=== PATIENT | female | born 1945 | race Two or more races ===

== ENCOUNTER 2017-10-17 20:02 | Emergency (ER) | payer BC, OTHER ==
[2017-10-17] MEDS ORDERED: DIPHTH,PERTUSS(ACELL),TET 0.5 ML DISP.SYRIN IM ONE (20:12)
--- NOTE | 2017-10-17 20:13 | PDOC ---
Rapid Medical Evaluation Time Seen by Provider: 10/17/17 20:04 Medical Evaluation: Allergies Allergy/AdvReac Type Severity Reaction Status Date / Time No Known Allergies Allergy Verified 10/21/12 18:17 10/17/17 20:09 I have performed a brief in-person evaluation of this patient. The patient presents with a chief complaint of: laceration to L index finger while cutting veggies, PMH of "heart arrhythmia", unknown last tdap, no daily meds I have ordered the following: tdap The patient will proceed to the ED for further evaluation. Discharge Disposition - Diagnosis Laceration - Referrals - Patient Instructions - Post Discharge Activity
[2017-10-17 20:15] VITALS: BP 148/103; PULSE 85; TEMP 98; BMI 22.4
--- NOTE | 2017-10-17 22:56 | PDOC ---
History of Present Illness - History of Present Illness Initial Comments: 10/17/17 22:56 Patient is a 71 year old female, presents to the emergency department with complaints of a laceration to her left pointer finger sustained just prior to arrival. Patient was cutting vegetables with a knife when she sliced her finger. She denies numbness or tingling in the left pointer finger. 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 Since then she has had some numbness in her left thumb. Patient is right hand dominant. Tetanus updated here in the ER. <Daniel Marshall - Last Filed: 10/17/17 22:56> <Maggie Woodall - Last Filed: 10/17/17 23:03> - General Chief Complaint: Laceration Stated Complaint: LACERATION Time Seen by Provider: 10/17/17 20:04 Past History <Daniel Marshall - Last Filed: 10/17/17 22:56> - Past Medical History Cardiac Disorders: Yes (MVP) COPD: No - Immunization History Immunization Up to Date: Yes - Suicide/Smoking/Psychosocial Hx Smoking Status: No Smoking History: Never smoked Number of Cigarettes Smoked Daily: 0 Hx Alcohol Use: No Drug/Substance Use Hx: No Substance Use Type: None <Maggie Woodall - Last Filed: 10/17/17 23:03> - Past Medical History Allergies/Adverse Reactions: Allergies Allergy/AdvReac Type Severity Reaction Status Date / Time No Allergy Information Allergy Verified 10/17/17 20:10 Available Home Medications: Ambulatory Orders No Home Medications 0 dose .ROUTE UTDICT 10/21/12 Review of Systems - Review of Systems Able to Perform ROS?: Yes Comments:: 10/17/17 22:56 CONSTITUTIONAL: Absent: fever, no chills, no fatigue MUSKULOSKELETAL: Absent: back pain, no arthralgia, no myalgia SKIN: Present: Laceration to left pointer finger. Puncture to left thumb Absent: rash NEURO: Absent: headache Is the patient limited Togolese proficient: No <Daniel Marshall - Last Filed: 10/17/17 22:56> *Physical Exam - Vital Signs Last Vital Signs Temp Pulse Resp BP Pulse Ox 98.0 F 85 18 148/103 98 10/17/17 20:11 10/17/17 20:11 10/17/17 20:11 10/17/17 20:11 10/17/17 20:11 - Physical Exam Comments: 10/17/17 22:56 GENERAL: Well-appearing, well-nourished. No apparent distress. EXTREMITIES: superficial laceration to the left pointer finger, flexion and extension intact. No tendons exposed. Small healed puncture proximal to the the thenar eminence Normal ROM in all four extremities. No gross deformities. SKIN: Warm, dry. No rash NEUROLOGICAL: No focal neurological deficits. <Daniel Marshall - Last Filed: 10/17/17 22:56> - Vital Signs Last Vital Signs Temp Pulse Resp BP Pulse Ox 98.0 F 85 18 148/103 98 10/17/17 20:11 10/17/17 20:11 10/17/17 20:11 10/17/17 20:11 10/17/17 20:11 <Maggie Woodall - Last Filed: 10/17/17 23:03> Procedures - Laceration/Wound Repair Left Distal 3rd digit Wound Length: to 2.5 cm Wound Explored: clean, no foreign body present Wound's Depth, Shape: superficial, linear (with piece of skin avulsed off. Wound approximated to the best tissue would allow) Irrigated w/ Saline: Yes Betadine Prep: Yes Anesthesia: 1% Lidocaine Amount of Anesthetic (ccs): 1 Wound Repaired With: Sutures Suture Size/Type: 5:0 (prolene) Number of Sutures: 4 (simple interrupted) Layer Closure: No Sterile Dressing Applied: Yes <Maggie Woodall - Last Filed: 10/17/17 23:03> ED Treatment Course - Medications Given in the ED: ED Medications Discontinued Medications Generic Name Dose Route Start Last Admin Trade Name Freq PRN Reason Stop Dose Admin Diphtheria/Tetanus/Acell Pertussis 0.5 ml 10/17/17 20:12 10/17/17 22:00 Boostrix - IM 10/17/17 20:13 0.5 ml .ONCE ONE Administration <Daniel Marshall - Last Filed: 10/17/17 22:56> - Medications Given in the ED: ED Medications Discontinued Medications Generic Name Dose Route Start Last Admin Trade Name Freq PRN Reason Stop Dose Admin Diphtheria/Tetanus/Acell Pertussis 0.5 ml 10/17/17 20:12 10/17/17 22:00 Boostrix - IM 10/17/17 20:13 0.5 ml .ONCE ONE Administration <Maggie Woodall - Last Filed: 10/17/17 23:03> *DC/Admit/Observation/Transfer - Attestations Scribe Attestion: 10/17/17 22:56 Documentation prepared by Daniel Marshall, acting as medical director/head team physician for DRAKE Alvarez <Daniel Marshall - Last Filed: 10/17/17 22:56> - Discharge Dispostion Admit: No <Maggie Woodall - Last Filed: 10/17/17 23:03> Diagnosis at time of Disposition: Laceration - Discharge Dispostion Disposition: HOME Condition at time of disposition: Good - Referrals Referrals: Jhoan Garcia MD [Staff Physician] - - Patient Instructions Printed Discharge Instructions: DI for Laceration Repair Additional Instructions: You had your laceration repaired today. You had 4 stitches placed. Keep the area clean and dry. Wear the finger splint given to you to help the cut heal better. You may gently wash your hands with soap and water and pat dry. You may take Tylenol or Motrin as needed for pain. Wear a glove at work and while showering to protect the finger from getting wet. Return to the ED in 7-10 days to have the stitches removed. Return to the ED sooner if you have signs of infection including, fevers, chills , drainage from the site, redness around the site or any changes in your symptoms - Post Discharge Activity Forms/Work/School Notes: Back to Work
== END 2017-10-17 23:01 | disposition home or self-care (01) ==
LOC: JERFT 20:02
PROC: 0HQGXZZ Repair Left Hand Skin, External Approach (ICD-10-PCS; principal; 2017-10-17)
PROC: 3E0234Z Introduction of Serum, Toxoid and Vaccine into Muscle, Percutaneous Approach (ICD-10-PCS; 2017-10-17)
DX: S61.412A Laceration without foreign body of left hand, initial encounter (principal); W26.8XXA Contact with other sharp object(s), not elsewhere classified, initial encounter; Y93.89 Activity, other specified; Y92.89 Other specified places as the place of occurrence of the external cause; Y99.0 Civilian activity done for income or pay
CPT/HCPCS: 90715; 99281-25

== ENCOUNTER 2017-10-28 19:20 | Emergency (ER) | payer BC ==
[2017-10-28 19:26] VITALS: BP 194/89; PULSE 79; TEMP 97.6; BMI 21.0
--- NOTE | 2017-10-28 20:25 | PDOC ---
Suture Removal/Wound Check HPI - History of Present Illness Chief Complaint: Suture/Staple Removal(Here) Stated Complaint: SUTURE REMOVAL Time Seen by Provider: 10/28/17 20:14 Exam Limitations: Yes: No Limitations Treated at: [facility] ED (4 simple interrupted sutures removed, no complications. Skin well approximated with no swelling, erythema, warmth. Patient denies f/c/n/v/d.) Date of Last ED visit: 10/17/17 - Previous ED Treatment Type of procedure performed on last visit: Yes: Laceration Repair Tetanus Immunization: Yes: Given at last ED visit - Onset of Previous Treatment Date of Occurence: 10/17/17 Past History - Past Medical History Allergies/Adverse Reactions: Allergies Allergy/AdvReac Type Severity Reaction Status Date / Time No Allergy Information Allergy Verified 10/17/17 20:10 Available Home Medications: Ambulatory Orders No Home Medications 0 dose .ROUTE UTDICT 10/21/12 Cardiac Disorders: Yes (MVP) COPD: No - Immunization History Immunization Up to Date: Yes - Suicide/Smoking/Psychosocial Hx Smoking Status: No Smoking History: Never smoked Have you smoked in the past 12 months: No Number of Cigarettes Smoked Daily: 0 Information on smoking cessation initiated: No Hx Alcohol Use: No Drug/Substance Use Hx: No Substance Use Type: None Medical Decision Making - Medical Decision Making 10/28/17 20:25 4 simple interrupted sutures removed. No complications. Edges well approximated. No discharge, warmth, swelling, erythema to site of injury. Patient denies any f/c/n/v/d. *DC/Admit/Observation/Transfer Diagnosis at time of Disposition: Visit for suture removal - Discharge Dispostion Disposition: HOME Condition at time of disposition: Stable Admit: No - Referrals - Patient Instructions Printed Discharge Instructions: DI for Suture Removal - Post Discharge Activity
== END 2017-10-28 20:28 | disposition home or self-care (01) ==
LOC: JERFT 19:20
DX: Z48.02 Encounter for removal of sutures (principal)
CPT/HCPCS: 99281-25

== ENCOUNTER 2018-06-17 00:52 | Emergency (ER) | payer BC ==
[2018-06-17 01:13] VITALS: BP 153/80; PULSE 70; TEMP 98.1; BMI 21.3
--- NOTE | 2018-06-17 01:30 | PDOC ---
History of Present Illness - General History Source: Patient, Family Exam Limitations: No Limitations - History of Present Illness Initial Comments: 06/17/18 02:11 The patient is a 72 year old female, accompanied by daughter, presents to the emergency department with 1 week of rash on the posterior neck. The patient states the rash is pruitic and has been interfering with her sleep. The patient states she has noted the rash spreading from the back of her neck to around the right side of her neck beginning a few days ago. The patient states she had a similar rash many years ago after having water melon which she states she has been eating recently. The patient denies using any new hair products/ shampoos, denies wearing necklaces, denies new perfumes or lotions. The patient denies chest pain, shortness of breath, headache and dizziness. Denies fever, chills, nausea, vomit, diarrhea and constipation. Denies dysuria, frequency, urgency and hematuria. Allergies: meperidine <Madi Pagan - Last Filed: 06/17/18 02:11> <Urvashi Urrutia - Last Filed: 06/18/18 06:47> - General Chief Complaint: Rash Stated Complaint: RASH Time Seen by Provider: 06/17/18 01:30 Past History <Madi Pagan - Last Filed: 06/17/18 02:11> - Past Medical History Cardiac Disorders: Yes (MVP) COPD: No - Immunization History Immunization Up to Date: Yes - Suicide/Smoking/Psychosocial Hx Smoking Status: No Smoking History: Never smoked Have you smoked in the past 12 months: No Number of Cigarettes Smoked Daily: 0 Hx Alcohol Use: No Drug/Substance Use Hx: No Substance Use Type: None <Urvashi Urrutia - Last Filed: 06/18/18 06:47> - Past Medical History Allergies/Adverse Reactions: Allergies Allergy/AdvReac Type Severity Reaction Status Date / Time meperidine [From Demerol] Allergy Verified 06/17/18 01:08 Home Medications: Ambulatory Orders No Home Medications 0 dose .ROUTE UTDICT 10/21/12 Diphenhydramine HCl [Benadryl -] 25 mg PO Q8H #30 capsule 06/17/18 Mometasone Furoate [Elocon] 1 applic TP BID #45 oint...g. 06/17/18 Review of Systems - Review of Systems Comments:: 06/17/18 02:15 GENERAL/CONSTITUTIONAL: No fever or chills. No weakness. HEAD, EYES, EARS, NOSE AND THROAT: No change in vision. No ear pain or discharge. No sore throat. CARDIOVASCULAR: No chest pain or shortness of breath. RESPIRATORY: No cough, wheezing, or hemoptysis. GASTROINTESTINAL: No nausea, vomiting, diarrhea or constipation. GENITOURINARY: No dysuria, frequency, or change in urination. MUSCULOSKELETAL: No joint or muscle swelling or pain. No neck or back pain. SKIN: (+) Rash. NEUROLOGIC: No headache, vertigo, loss of consciousness, or change in strength/ sensation. ENDOCRINE: No increased thirst. No abnormal weight change. HEMATOLOGIC/LYMPHATIC: No anemia, easy bleeding, or history of blood clots. ALLERGIC/IMMUNOLOGIC: (+) Rash. <Madi Pagan - Last Filed: 06/17/18 02:11> *Physical Exam - Vital Signs Last Vital Signs Temp Pulse Resp BP Pulse Ox 98.1 F 70 20 153/80 99 06/17/18 01:05 06/17/18 01:05 06/17/18 01:05 06/17/18 01:05 06/17/18 01:05 - Physical Exam Comments: 06/17/18 02:16 GENERAL: Awake, alert, and fully oriented, in no acute distress HEAD: No signs of trauma EYES: PERRLA, EOMI, sclera anicteric, conjunctiva clear ENT: Auricles normal inspection, hearing grossly normal, nares patent, oropharynx clear without exudates. Moist mucosa NECK: Normal ROM, supple, no lymphadenopathy, JVD, or masses LUNGS: Breath sounds equal, clear to auscultation bilaterally. No wheezes, and no crackles HEART: Regular rate and rhythm, normal S1 and S2, no murmurs, rubs or gallops ABDOMEN: Soft, nontender. No guarding, no rebound. No masses EXTREMITIES: Normal range of motion, no edema. No clubbing or cyanosis. No cords, erythema, or tenderness NEUROLOGICAL: Cranial nerves II through XII grossly intact. Normal speech, normal gait SKIN: (+) Erythematous irritated rash along the posterior hairline on neck. (+) Hive like swelling around right sided neck area. No other rashes noted. <Madi Pagan - Last Filed: 06/17/18 02:11> - Vital Signs Last Vital Signs Temp Pulse Resp BP Pulse Ox 98.1 F 70 20 153/80 99 06/17/18 01:05 06/17/18 01:05 06/17/18 01:05 06/17/18 01:05 06/17/18 01:05 <Urvashi Urrutia - Last Filed: 06/18/18 06:47> ED Treatment Course - Medications Given in the ED: ED Medications Discontinued Medications Generic Name Dose Route Start Last Admin Trade Name Derrell PRN Reason Stop Dose Admin Dexamethasone Sodium Phosphate 10 mg 06/17/18 01:52 06/17/18 01:56 Decadron Injection - IM 06/17/18 01:53 10 mg ONCE ONE Administration Diphenhydramine HCl 25 mg 06/17/18 01:55 06/17/18 01:56 Benadryl - PO 06/17/18 01:56 25 mg ONCE ONE Administration <Madi Pagan - Last Filed: 06/17/18 02:11> Medical Decision Making - Medical Decision Making 06/18/18 06:46 Pt has an eczematous rash over ner neck and surrounding neck. Pt has a contact dermatitis. I will treat her with a stronger steroid cream than what she has been able to get OTC, and which is not helping. Follow with PMD and with derm. Benadryl for the itching. <Urvashi Urrutia - Last Filed: 06/18/18 06:47> *DC/Admit/Observation/Transfer - Attestations Scribe Attestion: 06/17/18 02:18 Documentation prepared by Madi Pagan, acting as director of medical staff services for Urvashi Urrutia MD. <Madi Pagan - Last Filed: 06/17/18 02:11> - Discharge Dispostion Decision to Admit order: No <Urvashi Urrutia - Last Filed: 06/18/18 06:47> Diagnosis at time of Disposition: Contact dermatitis - Discharge Dispostion Disposition: HOME Condition at time of disposition: Stable - Prescriptions Prescriptions: Diphenhydramine HCl [Benadryl -] 25 mg PO Q8H #30 capsule Mometasone Furoate [Elocon] 1 applic TP BID #45 oint...g. - Referrals Referrals: Chris Edmond MD [Primary Care Provider] - - Patient Instructions Printed Discharge Instructions: DI for Contact Dermatitis, DI for General Allergic Reactions - Post Discharge Activity
[2018-06-17] MEDS ORDERED: DEXAMETHASONE SOD PHOSPHATE 10 MG/1 ML VIAL IM ONE (01:52)
[2018-06-17] MEDS ORDERED: diphenhydrAMINE HCL 25 MG CAPSULE (FP) PO ONE ×2 (01:55→01:57)
[2018-06-17] MEDS ORDERED: DEXAMETHASONE SOD PHOSPHATE 10 MG/1 ML VIAL ONE (01:57)
== END 2018-06-17 02:03 | disposition home or self-care (01) ==
LOC: JER 00:52
PROC: 3E033GC Introduction of Other Therapeutic Substance into Peripheral Vein, Percutaneous Approach (ICD-10-PCS; principal; 2018-06-17)
DX: L25.9 Unspecified contact dermatitis, unspecified cause (principal)
CPT/HCPCS: 99281-25; J1100

== ENCOUNTER 2019-03-06 21:39 | Emergency (ER) | payer BC ==
[2019-03-06 21:44] VITALS: BP 189/75; PULSE 86; TEMP 98.4; BMI 21.0
--- NOTE | 2019-03-06 21:44 | PDOC ---
Rapid Medical Evaluation Time Seen by Provider: 03/06/19 21:41 Medical Evaluation: Allergies Allergy/AdvReac Type Severity Reaction Status Date / Time meperidine [From Demerol] Allergy Verified 06/17/18 01:08 03/06/19 21:41 I have performed a brief in-person evaluation of this patient. The patient presents with a chief complaint of: rash to trunk Pertinent physical exam findings: flat pink rash to chest and upper back. No change in cosmentics/soaps/lotions/meds/foods. No stridor. Lungs CTAB I have ordered the following: nothing The patient will proceed to the ED for further evaluation. Discharge Disposition - Diagnosis Rash - Referrals - Patient Instructions - Post Discharge Activity
[2019-03-06] MEDS ORDERED: DEXAMETHASONE LIQUID 0.5 MG/5 ML 240 ML BULK BOTTLE PO ONE (22:08)
[2019-03-06] MEDS ORDERED: DEXAMETHASONE SOD PHOSPHATE 10 MG/1 ML VIAL ONE (22:10)
--- NOTE | 2019-03-06 22:11 | PDOC ---
History of Present Illness - General Chief Complaint: Rash Stated Complaint: RASH OVER CHEST Time Seen by Provider: 03/06/19 21:41 - History of Present Illness Initial Comments: 03/06/19 22:09 73-year-old female without comorbidities presents for evaluation of one day of rash and itching without associated or systemic symptoms. Past History - Past Medical History Allergies/Adverse Reactions: Allergies Allergy/AdvReac Type Severity Reaction Status Date / Time meperidine [From Demerol] Allergy Verified 03/06/19 21:44 Home Medications: Ambulatory Orders Diphenhydramine HCl [Benadryl -] 25 mg PO Q8H #30 capsule 06/17/18 Cardiac Disorders: Yes (MVP) COPD: No - Immunization History Immunization Up to Date: Yes - Suicide/Smoking/Psychosocial Hx Smoking Status: No Smoking History: Never smoked Have you smoked in the past 12 months: No Number of Cigarettes Smoked Daily: 0 Hx Alcohol Use: No Drug/Substance Use Hx: No Substance Use Type: None Review of Systems - Review of Systems Constitutional: No: Fever HEENTM: No: Throat Swelling Respiratory: No: Shortness of Breath, Wheezing Integumentary: Yes: Pruritus, Rash *Physical Exam - Vital Signs Last Vital Signs Temp Pulse Resp BP Pulse Ox 98.4 F 86 18 189/75 H 99 03/06/19 21:41 03/06/19 21:41 03/06/19 21:41 03/06/19 21:41 03/06/19 21:41 - Physical Exam Comments: 03/06/19 22:09 HEAD: NC/AT EYES: Conjuntiva clear Ears: Canals and TM's normal NOSE: No d/c THROAT: Moist mucous membrances, oral pharanx clear, uvula midline NECK: Supple without adenopathy CARDIAC: S1 S2 LUNGS: CTA Full and Equal breath sounds ABDOMEN: Soft NT ND MS: Full ROM in all joints without edema NEUROLOGIC: No gross sensory or motor deficits, NVID SKIN: Normal color and temperature there is a flat rash on the anterior aspect of the chest and shoulders and neck no indication of infection Medical Decision Making - Medical Decision Making 03/06/19 22:10 Patient will continue at home Benadryl, I've given her dose of Decadron in the emergency room. This is contact dermatitis. *DC/Admit/Observation/Transfer Diagnosis at time of Disposition: Rash, Contact dermatitis - Discharge Dispostion Disposition: HOME Condition at time of disposition: Stable Decision to Admit order: No - Referrals Referrals: Domi Richards MD [Staff Physician] - - Patient Instructions Printed Discharge Instructions: Contact Dermatitis, DI for Contact Dermatitis Additional Instructions: He will given a dose of a long-acting steroid in the emergency room. Do not require further steroid treatment. Continue with Benadryl at home as directed return to the emergency room for worsening symptoms and follow-up with internal medicine in one to 2 days for further evaluation and treatment options. - Post Discharge Activity
== END 2019-03-06 22:15 | disposition home or self-care (01) ==
LOC: JERFT 21:39
DX: L30.9 Dermatitis, unspecified (principal)
CPT/HCPCS: 99281-25

== ENCOUNTER 2019-04-07 16:15 | Emergency (ER) | payer BC | END 2019-04-07 17:03 | disposition home or self-care (01) | LOC: JERFT 16:15 ==

== ENCOUNTER 2019-06-26 21:54 | Emergency (ER) | payer BC ==
[2019-06-26 22:23] VITALS: BP 168/67; PULSE 72; TEMP 97.6; BMI 21.0
[2019-06-26] MEDS ORDERED: DEXAMETHASONE SOD PHOSPHATE 10 MG/1 ML VIAL IM ONE (22:34)
[2019-06-26] MEDS ORDERED: DEXAMETHASONE SOD PHOSPHATE 10 MG/1 ML VIAL ONE (22:35)
--- NOTE | 2019-06-26 22:43 | PDOC ---
History of Present Illness - General Chief Complaint: Allergic Reaction Stated Complaint: ALLERGIC REACTION Time Seen by Provider: 06/26/19 22:23 History Source: Patient - History of Present Illness Timing/Duration: reports: other Location: reports: extremities Past History - Past Medical History Allergies/Adverse Reactions: Allergies Allergy/AdvReac Type Severity Reaction Status Date / Time meperidine [From Demerol] Allergy Verified 06/26/19 22:23 Home Medications: Ambulatory Orders Famotidine [Pepcid] 20 mg PO BID 4 Days #8 tablet 04/07/19 Hydrocortisone 2.5% Lotion [Hytone 2.5% Lotion -] 1 applic TP BID PRN 7 Days #1 bottle 04/07/19 Prednisone [Deltasone] 20 mg PO BID 4 Days #8 tablet 04/07/19 Cardiac Disorders: Yes (MVP) COPD: No - Immunization History Immunization Up to Date: Yes - Suicide/Smoking/Psychosocial Hx Smoking Status: No Smoking History: Never smoked Have you smoked in the past 12 months: No Number of Cigarettes Smoked Daily: 0 Information on smoking cessation initiated: No Hx Alcohol Use: No Drug/Substance Use Hx: No Substance Use Type: None Review of Systems - Review of Systems Constitutional: No: Fever Integumentary: Yes: Pruritus, Rash *Physical Exam - Vital Signs Last Vital Signs Temp Pulse Resp BP Pulse Ox 97.6 F 72 17 168/67 100 06/26/19 22:21 06/26/19 22:21 06/26/19 22:21 06/26/19 22:21 06/26/19 22:21 - Physical Exam General Appearance: Yes: Appropriately Dressed. No: Apparent Distress HEENT: positive: Normal Voice Neck: positive: Supple Respiratory/Chest: negative: Respiratory Distress Integumentary: positive: Warm, Other (hives to R arm) Neurologic: positive: Fully Oriented, Alert, Normal Mood/Affect Medical Decision Making - Medical Decision Making 06/26/19 22:43 73 yo F, no sig hx, here w/ pruritc rash to RUE x 2 days. No obvious inciting factors. Has has similar episode in past and told allergy per pt See exam Hives Dose fo decadron for itch here -dc w/ OTC oral antihistamine prn itch -to return as needed *DC/Admit/Observation/Transfer Diagnosis at time of Disposition: Hive - Discharge Dispostion Disposition: HOME Condition at time of disposition: Good - Referrals - Patient Instructions Printed Discharge Instructions: DI for Hives Additional Instructions: Take benadryl as needed for itching at nights Take claritin or zyrtec as needed for itch during the day - Post Discharge Activity
== END 2019-06-26 22:41 | disposition home or self-care (01) ==
LOC: JERFT 21:54
PROC: 3E023GC Introduction of Other Therapeutic Substance into Muscle, Percutaneous Approach (ICD-10-PCS; principal; 2019-06-26)
DX: L50.9 Urticaria, unspecified (principal)
CPT/HCPCS: 99281-25; J1100

== ENCOUNTER 2019-08-02 17:30 | Emergency (ER) | payer BC ==
--- NOTE | 2019-08-02 17:38 | PDOC ---
Rapid Medical Evaluation Medical Evaluation: Allergies Allergy/AdvReac Type Severity Reaction Status Date / Time meperidine [From Demerol] Allergy Verified 06/26/19 22:23 I have performed a brief in-person evaluation of this patient. The patient presents with a chief complaint of: c/o itchy rash to RUE from today ; was here recently for same; has been using Benadryl but states it comes back; has seen allergy doctor (last seen 1 month ago); denies recent travel, gardening ; has also tried calamine lotion, topical hydrocortisone cream and other meds Pertinent physical exam findings: +erythmatous blanching rash along RUE I have ordered the following: Nothing The patient will proceed to the ED for further evaluation. 08/02/19 17:35 Discharge Disposition - Referrals Referrals: Domi Richards MD [Primary Care Provider] - - Patient Instructions - Post Discharge Activity
[2019-08-02 17:40] VITALS: BP 174/91; PULSE 80; TEMP 98.6; BMI 23.8
[2019-08-02] MEDS ORDERED: DEXAMETHASONE SOD PHOSPHATE 10 MG/1 ML VIAL IM ONE (18:35)
--- NOTE | 2019-08-02 18:35 | PDOC ---
History of Present Illness - General Chief Complaint: Allergic Reaction Stated Complaint: Allergic Reaction Time Seen by Provider: 08/02/19 17:35 History Source: Patient - History of Present Illness Timing/Duration: reports: week Location: reports: extremities Past History - Past Medical History Allergies/Adverse Reactions: Allergies Allergy/AdvReac Type Severity Reaction Status Date / Time meperidine [From Demerol] Allergy Verified 08/02/19 17:36 Home Medications: Ambulatory Orders Famotidine [Pepcid] 20 mg PO BID 4 Days #8 tablet 04/07/19 Hydrocortisone 2.5% Lotion [Hytone 2.5% Lotion -] 1 applic TP BID PRN 7 Days #1 bottle 04/07/19 Prednisone [Deltasone] 20 mg PO BID 4 Days #8 tablet 04/07/19 Loratadine [Claritin] 10 mg PO DAILY #12 tablet 08/02/19 Loratadine [Claritin] 10 mg PO DAILY #15 tablet 08/02/19 Cardiac Disorders: Yes (MVP) COPD: No - Immunization History Immunization Up to Date: Yes - Suicide/Smoking/Psychosocial Hx Smoking Status: No Smoking History: Never smoked Have you smoked in the past 12 months: No Number of Cigarettes Smoked Daily: 0 Hx Alcohol Use: No Drug/Substance Use Hx: No Substance Use Type: None Review of Systems - Review of Systems Constitutional: No: Chills, Fever HEENTM: No: Throat Swelling Respiratory: No: Shortness of Breath, Stridor, Wheezing Integumentary: Yes: Pruritus, Rash *Physical Exam - Vital Signs Last Vital Signs Temp Pulse Resp BP Pulse Ox 98.6 F 80 16 174/91 H 100 08/02/19 17:36 08/02/19 17:36 08/02/19 17:36 08/02/19 17:36 08/02/19 17:36 - Physical Exam General Appearance: Yes: Appropriately Dressed. No: Apparent Distress HEENT: positive: Normal Voice Neck: positive: Supple Respiratory/Chest: negative: Respiratory Distress Extremity: positive: Other (~8x4cm erythematous plaque to lateral aspect of arm extending in forearm, no increased warmth or ttp) Integumentary: positive: Dry, Warm Neurologic: positive: Fully Oriented, Alert, Normal Mood/Affect Medical Decision Making - Medical Decision Making 09/20/19 18:33 73 yo F, h/o multiple environmental allergies w/ recurrent hives, here w/ pruritic rash to RUE x 1 week. Using cortisone ointment w/ no relief. No resp sxs. see exam Recurrent hives Tested + for environmental allergies in past per pt -dose of decadron here -dc w/ oral antihistamine -allergy f/u as needed *DC/Admit/Observation/Transfer Diagnosis at time of Disposition: Hives - Discharge Dispostion Disposition: HOME Condition at time of disposition: Good - Prescriptions Prescriptions: Loratadine [Claritin] 10 mg PO DAILY #12 tablet - Referrals Referrals: Domi Richards MD [Primary Care Provider] - - Patient Instructions Printed Discharge Instructions: Hives Additional Instructions: Take medications as directed Please follow up with your allergiest - Post Discharge Activity
[2019-08-02] MEDS ORDERED: DEXAMETHASONE SOD PHOSPHATE 10 MG/1 ML VIAL ONE (18:46)
== END 2019-08-02 19:26 | disposition home or self-care (01) ==
LOC: JERFT 17:30 → JER 17:30 → JERFT 19:26
PROC: 3E0233Z Introduction of Anti-inflammatory into Muscle, Percutaneous Approach (ICD-10-PCS; principal; 2019-08-02)
DX: L50.9 Urticaria, unspecified (principal); Z91.09 Other allergy status, other than to drugs and biological substances; I34.1 Nonrheumatic mitral (valve) prolapse
CPT/HCPCS: 99281-25; J1100

== ENCOUNTER 2022-04-22 23:38 | Emergency (ER) | payer BC ==
[2022-04-22 23:43] VITALS: BP 179/78; PULSE 88; TEMP 97; BMI 25.6
[2022-04-23] MEDS ORDERED: KETOCONAZOLE 2% CREAM - 60GM TUBE TP ONE (01:23)
[2022-04-23] MEDS ORDERED: KETOCONAZOLE 2% CREAM - 60GM TUBE TP SCH (10:00)
== END 2022-04-23 01:57 | disposition home or self-care (01) ==
LOC: JER 23:38
DX: R21 Rash and other nonspecific skin eruption (principal)
CPT/HCPCS: 99283-25

== ENCOUNTER 2024-06-12 13:48 | Emergency (ER) | payer BC ==
[2024-06-12 13:56] VITALS: RESP 16; TEMP 98.1; BMI 18.8
[2024-06-12] MEDS ORDERED: ACETAMINOPHEN INJECTION 100 ML IVPB ONE (15:35)
[2024-06-12] MEDS ORDERED: FAMOTIDINE 20 MG/50 ML IVPB 20 MG/50 ML MG IVPB ONE (15:35)
[2024-06-12] MEDS ORDERED: MAG HYDROX/AL HYDROX/SIMETH 30 ML UNIT-DOSE CUP ONE (15:35)
[2024-06-12] MEDS: ACETAMINOPHEN 1000 MG/100 ML BAG IVPB ONE (16:12)
[2024-06-12] MEDS: MAG HYDROX/AL HYDROX/SIMETH 30 ML UNIT-DOSE CUP PO ONE (16:12)
[2024-06-12 16:16] LABS: BASO % 0.6 % (0-2.0); EOS % 0.4 % (0-4.5); HEMATOCRIT 37.7 % (32.4-45.2); LYMPH % 16.1 % (8-40); MCH 24.6 pg (25.7-33.7); MCHC 31.7 g/dl (32.0-36.0); MEAN CELL VOLUME 77.5 fl (80-96); MEAN PLT VOLUME 7.4 fl (7.5-11.1); MONO % 4.5 % (3.8-10.2); NEUT % 78.4 % (42.8-82.8); PLATELET COUNT 455 10^3/uL (134-434); RBC 4.87 M/mm3 (3.60-5.2); RDW 17.1 % (11.6-15.6); WHITE BLOOD COUNT 9.6 K/mm3 (4.0-10.0)
[2024-06-12] MEDS: FAMOTIDINE 20 MG/50 ML IVPB 20 MG/50 ML MG IVPB ONE (16:24)
[2024-06-12 17:02] LABS: POTASSIUM 4.2 mmol/L (3.5-5.1)
[2024-06-12 17:04] LABS: ALBUMIN 4.2 g/dl (3.4-5.0); CALCIUM 9.5 mg/dL (8.5-10.1); INR 1.05 (0.83-1.09); PROTHROMBIN TIME (PATIENT) 11.8 SEC (9.7-13.0)
[2024-06-12 17:07] LABS: ACTIVATED PTT 26.8 SECONDS (25.2-36.5); CREATININE 0.7 mg/dL (0.55-1.3)
[2024-06-12 17:09] LABS: BILIRUBIN,TOTAL 0.6 mg/dL (0.2-1); TOT PROT 7.7 g/dl (6.4-8.2)
[2024-06-12 17:11] VITALS: BP 169/64; PULSE 68
[2024-06-12 19:06] LABS: URINE APPEARANCE CLEAR; URINE BILIRUBIN NEGATIVE (NEGATIVE); URINE COLOR YELLOW; URINE GLUCOSE (UA) NEGATIVE (NEGATIVE); URINE KETONE NEGATIVE (NEGATIVE); URINE LEUK ESTERASE NEGATIVE (NEGATIVE); URINE NITRITE NEGATIVE (NEGATIVE); URINE PROTEIN NEGATIVE (NEGATIVE); URINE UROBILINOGEN 0.2 mg/dL (0.2-1.0)
== END 2024-06-12 21:26 | disposition home or self-care (01) ==
LOC: JER 13:48
PROC: 3E033GC Introduction of Other Therapeutic Substance into Peripheral Vein, Percutaneous Approach (ICD-10-PCS; principal; 2024-06-12)
PROC: 3E033NZ Introduction of Analgesics, Hypnotics, Sedatives into Peripheral Vein, Percutaneous Approach (ICD-10-PCS; 2024-06-12)
DX: R10.12 Left upper quadrant pain (principal)
CPT/HCPCS: 36415; 74177-TC; 76705-TC; 80053; 81003; 83605; 83690; 84484; 85025; 85610; 85730; 87077; 87086; 93005; 93010; 99285-25; J0131